=== PATIENT | male | born 1970 | race Caucasian/White ===

== ENCOUNTER → 2024-04-21 12:09 | Outpatient (REF) | payer BC, SELFPAY | LOC: HWRAD 12:09 | PROVIDERS: ATTENDING PHYSICIAN Physician Assistant; FAMILY PHYSICIAN Family Medicine | DX: E27.8 Other specified disorders of adrenal gland (principal) | CPT/HCPCS: 74170; Q9967 ==

== ENCOUNTER → 2024-06-30 06:19 | Day surgery (SDC) | payer BC, SELFPAY | LOC: GI 06:19 | PROVIDERS: ATTENDING PHYSICIAN Internal Medicine Gastroenterology | DX: Z12.11 Encounter for screening for malignant neoplasm of colon (principal); Z86.010 Personal history of colon polyps; K44.9 Diaphragmatic hernia without obstruction or gangrene; K22.89 Other specified disease of esophagus | CPT/HCPCS: 43239; G0105; 88305; 88342 ==

== ENCOUNTER → 2024-07-14 06:18 | Day surgery (SDC) | payer BC, SELFPAY | LOC: GI 06:18 | PROVIDERS: ATTENDING PHYSICIAN Internal Medicine Gastroenterology | DX: Z12.11 Encounter for screening for malignant neoplasm of colon (principal); K64.8 Other hemorrhoids; K57.30 Diverticulosis of large intestine without perforation or abscess without bleeding; K63.5 Polyp of colon; Z86.010 Personal history of colon polyps | CPT/HCPCS: 45385; 88305 ==

== ENCOUNTER → 2024-11-03 08:50 | Outpatient (REF) | payer BC, SELFPAY | LOC: HWRAD 08:50 | PROVIDERS: ATTENDING PHYSICIAN Family Medicine; OTHER PHYSICIAN Internal Medicine Cardiovascular Disease; OTHER PHYSICIAN Ophthalmology; REFERRING PHYSICIAN Specialist | DX: R41.82 Altered mental status, unspecified (principal); H53.9 Unspecified visual disturbance; K21.9 Gastro-esophageal reflux disease without esophagitis; F39 Unspecified mood [affective] disorder; E78.2 Mixed hyperlipidemia; R42 Dizziness and giddiness | CPT/HCPCS: 70450; 93880 ==

== ENCOUNTER → 2024-12-15 08:10 | Outpatient (REF) | payer BC, SELFPAY | LOC: HWRCS 08:10 | PROVIDERS: ATTENDING PHYSICIAN Internal Medicine Cardiovascular Disease; FAMILY PHYSICIAN Family Medicine | DX: R06.02 Shortness of breath (principal) | CPT/HCPCS: 93306 ==

== ENCOUNTER 2025-02-09 13:12 | Observation (INO) | payer BC, SELFPAY ==
[2025-02-09] VITALS (8 sets, daily range): BP systolic 109–122; BP diastolic 65–89; BMI 25.3
--- NOTE | 2025-02-09 11:04 | ED.CVA ---
History of Present Illness
General
Chief Complaint: CVA/TIA Symptoms
Time Seen by Provider: 02/09/25 10:51
Onset of Stroke Symptoms
Onset of symptoms known: Yes
Date of onset of symptoms: 02/09/25
Time of onset of symptoms: 10:00
Time pt last seen normal is known: Yes
Date last time pt seen normal: 02/09/25
Time last time pt seen normal: 10:00
History of Present Illness
History of Present Illness:
Patient is a 54-year-old male with history of TIA, hyperlipidemia presenting to the emergency department with double vision. Per medics patient's last known normal was 10 AM. He had this episode of stiffening of his arms and legs and blank
staring. When he came to he was complaining of double vision. No urinary incontinence or jerking of his extremities. He states that the last time he had double vision he had a full evaluation by cardiology and neurology and ophthalmology and they
determined it was a TIA. He is on a baby aspirin. Upon medics arrival they noticed that he was leaning to his right was having difficulty walking and had an ataxic gait. Their NIH was 0. He does state that the double vision is binocular. No
trauma. No headache. No hearing changes. No numbness tingling. No weakness.
Past History
Past History
ED Past Medical History: None
ED Past Surgical History: Tonsilectomy
Social History
Tobacco: Non-smoker
Personal:
Living: with family
Phy Exam
Physical Exam
Physical Exam:
GENERAL: in no acute distress
HEENT: normocephalic, extraocular movements intact, moist oral mucosa
NECK: normal inspection
RESPIRATORY: no respiratory distress, clear to auscultation bilaterally
CARDIOVASCULAR: regular rate and rhythm
ABDOMEN/: soft, non-distended, non-tender to palpation, no rebound or guarding
EXTREMITIES: non-tender, no edema/swelling
NEUROLOGIC: NIH 0 awake and alert, moves all extremities, no gross motor or sensory deficits, normal finger-nose, normal [id number]-kcps, extraocular movements intact and no visual field deficits
SKIN: warm
NIH Stroke Score
Level of Consciousness: 0 - Alert
LOC questions: 0-Answers both correctly
LOC Commands: 0-Performs both correctly
Best Gaze: 0-Normal
Visual Dillon: 0=Normal, no visual loss
Facial palsy: 0=Normal, symmetrical
Motor - Right Arm: 0=No drift 10 seconds
Motor - Left Arm: 0=No drift 10 seconds
Motor - Right Le-No drift 5 seconds
Motor - Left Le-No drift 5 seconds
Limb Ataxia: 0-Absent
Sensation: 0-Normal
Best Language: 0-No aphasia
Dysarthria: 0-Normal
Extinction and Inattention: 0-No abnormality
Total Score:: 0
Course
Orders/Labs/Results
Orders:
Orders
02/09/25 11:00
CT Head W/o Iv Contrast Urgent
Comment:
Reason For Exam: double vision, hx TIA
02/09/25 11:01
Electrocardiogram (*1) Urgent
Reason for Study: TIA/Stroke
EKG- Treatment ONCE
02/09/25 11:06
Basic Metabolic Panel Urgent
Complete Blood Count/With Diff Urgent
Troponin I Urgent
02/09/25 12:00
MR Brain W/o & With Contrast Routine
Comment:
Reason For Exam: diplopia
OK for patient to be off Cardiac Monitoring for MRI: No
Recent pill cam endoscopy?: No
02/09/25 12:16
Add On- LAB Urgent
Comments:: In LAB
Tests Added?: CRP,ESR,TSH reflex to free,B1,Lamictal level,Acetylcholine bind
02/09/25 12:25
Vitamin B1, Whole Blood [S] Urgent
Abnormal Lab Results
02/09/25
11:06
MCH 31.7 H pg
(27.0-31.0)
Abs Immat Gran (auto) 0.1 H 10^3/uL
(0-0.05)
Immature Gran % 0.7 H %
(0-0.5)
Chloride 108 H mmol/L
(98-107)
02/09/25 11:06
02/09/25 11:06
Vital Signs
Initial and Last Documented VS:
Initial Vital Signs
BP
122/89
02/09/25 10:51
Last Documented Vital Signs
Temp Pulse Resp BP Pulse Ox
98.6 F 56 22 119/84 96
02/09/25 10:54 02/09/25 12:21 02/09/25 11:45 02/09/25 11:00 02/09/25 11:45
MDM/Problems Addressed
Differential Diagnosis Includes:
Patient is a 54-year-old man with history of TIA, hyperlipidemia presenting to the emergency department with double vision, ataxia and concerns for leaning to the right. His symptoms besides a double vision have resolved. The vision is binocular.
Concern for CVA/TIA given that this is what happened in the past before. Other considerations could be intracranial mass or demyelinating disease or neuromuscular junction disease. Unclear etiology of patient's stiffness episode. Could be
seizure. Does not seem consistent with syncope. Will check blood work EKG. Will obtain CT scan. Patient is not a stroke alert candidate at this time given NIH of 0 however I did notify neurology.
*Critical Care Note
Total Time (30-74mins, 75-104mins- exclusive of procedures): Not Applicable
Update Note
Update Note:
Neuro evaluated patient. Recommended admission for MRI and additional workup. Blood work CT scan unremarkable. Patient with ongoing diplopia. Discussed with hospitalist accepted patient to their service
ED Attending Note
-
Portions of this chart may have been created with voice recognition software.� Occasional wrong word or��sound alike� substitutions may have occurred due to the inherent limitations of voice recognition software.
Discharge Plan
Departure
Patient Disposition: Admit
Date of Disposition: 02/09/25
Time of Disposition: 12:30
Presentation/result/management discussed w/ accepting MD/DO: Hospitalist
Discharge Problem:
Diplopia
Prescriptions:
No Action
Effexor
1 tab PO DAILY
Nexium
1 tab PO DAILY
Referrals:
Edilberto Linares MD [Family Provider] -
Interventions
Interventions:
*Risk Screen - Suicide Last Done: 02/09/25 10:54
*General Assessment Last Done: 02/09/25 10:54
*Neglect/Abuse Screening Last Done: 02/09/25 10:54
*ED- Fall Risk Assessment Last Done: 02/09/25 10:54
*ED COVID-19 Vaccine History Last Done: 02/09/25 10:54
ED- Pulmonary Assessment Last Done: 02/09/25 12:21
ED- Neurological Assessment Last Done: 02/09/25 11:04
ED- Cardiac Assessment Last Done: 02/09/25 12:21
Discharge Date and Time
Print Language: [place]THER[place] IRISH
[2025-02-09 11:27] LABS: % Eosinophils 1.8 % (0-6); % Immature Granulocytes 0.7 % (0-0.5); % Lymphocytes 38.4 % (20.5-51.1); % Monocytes 6.7 % (1.7-9.3); % Neutrophils 51.4 % (42.2-75.2); Absolute Basophils 0.1 10^3/uL (0-0.2); Absolute Eosinophils 0.2 10^3/uL (0-0.7); Absolute Immature Granulocytes 0.1 10^3/uL (0-0.05); Absolute Lymphocytes 3.4 10^3/uL (1.2-3.4); Absolute Monocytes 0.6 10^3/uL (0.1-0.6); Absolute Neutrophils 4.6 10^3/uL (1.4-6.5); Hematocrit 43.2 % (39.0-52.0); Hemoglobin 15.1 g/dL (13.0-18.0); Mean Corpuscular Hgb 31.7 pg (27.0-31.0); Mean Corpuscular Volume 90.6 fL (80.0-94.0); Nucleated Red Blood Cells % 0 % (-); Platelet Count 246 10^3/uL (130-400); Red Blood Cell Count 4.77 10^6/uL (4.70-6.10); Red Cell Dist. Width 12.8 % (11.5-14.5); White Blood Cell Count 8.9 10^3/uL (4.8-10.8)
--- NOTE | 2025-02-09 11:37 | CON.NEURO ---
Consultation
Order
Date of Consultation: 02/09/25
Requesting Provider:
Reason for Consult: Diplopia
Neurology Consultation Note.
HPI: This is a 54-year-old man who presented to [facility] on 02/05/2025 with diplopia. According to the patient he developed an acute vertigo painless binocular diplopia at 9:00-9:30 AM today, after waking up at 7:45 AM feeling
perfectly fine. The patient denies any associated headaches, vertigo, dysphagia, dysarthria or dyspnea. He had a previous episode in October,, lasting 10-15 minutes.
The patient was previously seen by Dr. Aguilera and reportedly had unremarkable EMG.
ER VS: 147/87,57, 37.0 C
EKG:Sinus bradycardia, QTc Int : 374 ms
PDMP: No recently prescribed medication
Labs: Glucose�93, normal WBCs, platelets,
Carotid Doppler ultrasound (11/03/2024)�unremarkable
CT head wo contrast(11/03/2024) -no acute abnormality
PMH: HTN, DLP, GERD, ET, RF+, MDD, EtOH addiction in remission for 11.5 years, nephrolithiasis
PSH: Tonsillectomy/ear tube procedures
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
FH: Not contributory to current presentation
All: Penicillin
ROS: Constitutional: Negative. Negative for chills, fever and unexpected weight change.
HENT: Negative for ear pain, hearing loss, tinnitus and trouble swallowing.
Eyes: Negative. Negative for photophobia, pain and visual disturbance.
Respiratory: Negative for cough, choking and shortness of breath.
Cardiovascular: Negative for chest pain, palpitations and leg swelling.
Gastrointestinal: Negative for abdominal pain and vomiting.
Endocrine: Negative. Negative for cold intolerance.
Genitourinary: Negative for dysuria, flank pain and urgency.
Musculoskeletal: Negative for back pain, gait problem, neck pain and neck stiffness.
Skin: Negative for rash.
Allergic/Immunologic: Negative. Negative for immunocompromised state.
Neurological: Positive for diplopia, imbalance
Psychiatric/Behavioral: Negative for behavioral problems, confusion and hallucinations.
General: Well developed. In no acute distress.
Cardio: Regular rate and rhythm without murmur. Extremities are without cyanosis or edema.
Neuro:
Mental Status: Alert, oriented to person, place, and date. Normal attention and recall. Good fund of knowledge. Follows complex requests across the midline. Comprehension, naming, and repetition intact. Immediate and delayed recall 3/3.
Cranial Nerves: Pupils are equally round and reactive to light. EOMs full. Visual cazares full to confrontation. No ptosis. Horizontal nystagmus on bilateral gaze. V1-V3 intact to light touch and pinprick bilaterally, symmetric. Face
symmetric. Normal hearing AU. The palate elevated well. SCMs and traps 5/5. Tongue midline. No dysarthria.
Motor: Normal bulk and tone. No pronator or arm drift. Strength 5/5 throughout. No clonus.
Reflexes: 3+ throughout the upper extremities and 3+ knees. 2/2 in AJs. Plantar responses flexor bilaterally.
Sensory: Normal vibration and JPS.
Coordination: No dysmetria or tremor.
Gait: deferred
Assessment and Plan:
I. Recurrent diplopia. Differential diagnosis includes vascular versus demyelinating, versus inflammatory, versus metabolic versus neuromuscular junction etiologies.
II. MDD
III. Alcohol use disorder in remission
-Fall precautions
-Apply an eye patch
-Please check Lamictal level, MG panel, thiamine level, TFTs
-Brain MRI with and without gadolinium
-Please obtain medical records from Dr. Aguilera's office.
-Will follow
I personally reviewed all radiology and labs along with past medical records pertinent to current medical problems. Total time spent in patient care is 60 minutes.
Thank you for allowing us to participate in the care of this patient. We will continue to follow. Please do not hesitate to contact us with any questions or concerns.
Subjective/Objective
Subjective Data
Date of Service: February 09, 2025
Objective Data
Vital Signs
Temp Pulse Resp BP Pulse Ox
37.0 C 58 23 119/84 96
02/09/25 10:54 02/09/25 11:00 02/09/25 11:00 02/09/25 11:00 02/09/25 11:00
Lab Results
02/09/25 11:06
Patient Allergies
Penicillins Allergy (Unknown, Verified 02/27/10 22:57)
Unknown
Medications
-
Home Medications
�Medication �Instructions �Recorded
Effexor 1 tab PO DAILY 02/28/10
Nexium 1 tab PO DAILY 02/28/10
Vital Signs and Labs
-
Vital Signs and Labs:
Vital Signs
Temp Pulse Resp BP Pulse Ox
37.0 C 58 23 119/84 96
02/09/25 10:54 02/09/25 11:00 02/09/25 11:00 02/09/25 11:00 02/09/25 11:00
Lab Results
02/09/25 11:06
02/09/25 11:06
Sodium 143 mmol/L (135-145) 02/09/25 11:06
Potassium 4.6 mmol/L (3.5-5.1) 02/09/25 11:06
BUN 12 mg/dl (9-20) 02/09/25 11:06
Glucose 93 mg/dl (70-99) 02/09/25 11:06
Calcium 9.8 mg/dl (8.4-10.2) 02/09/25 11:06
Home Medications
-
Home Medications
Effexor 1 tab PO DAILY 02/28/10
Nexium 1 tab PO DAILY 02/28/10
[2025-02-09 11:43] LABS: Blood Urea Nitrogen 12 mg/dl (9-20); Calcium 9.8 mg/dl (8.4-10.2); Carbon Dioxide 25 mmol/L (22-30); Estimated Creatinine Clearance 82 ml/min; Glucose 93 mg/dl (70-99); Potassium 4.6 mmol/L (3.5-5.1); Sodium 143 mmol/L (135-145); eGFR > 60.00
[2025-02-09 11:53] LABS: Troponin I < 0.012 ng/ml
[2025-02-09 12:15] LABS: Chloride 108 mmol/L (98-107)
--- NOTE | 2025-02-09 12:55 | HPS.HSE ---
Addendum entered and electronically signed by Bree Oliveira MD 02/09/25 12:58:
Currently denies any symptoms.
Addendum entered and electronically signed by Bree Oliveira MD 02/09/25 12:57:
Patient states right eye feels weak.
Original Note:
Family Physician
-
Family Physician: Edilberto Linares
Chief Complaint
-
double vision
History of Present Illness
54-year-old male past medical history of hypertension, hyperlipidemia, GERD, depression, prior alcohol use disorder, nephrolithiasis, rheumatoid factor positive, presenting with double vision. He had episode of acute vertigo, bilateral painless
double vision at 9 AM today after waking up at 7:45 in the morning perfectly fine. He denies headaches, vertigo, difficulty swallowing, speaking or shortness of breath.
He had a similar episode in October 2024 lasting 10 to 15 minutes associate with some weakness and tingling at that time.
Patient was previously diagnosed essential tremor of his hands and started on propranolol. He had EMG by Dr. Aguilera which was unremarkable.
He uses marijuana. He does not smoke.
No family history of neurological problems.
Medical History
Past Medical History
Past Medical History: Reports Other (hypertension, hyperlipidemia, GERD, depression, prior alcohol use disorder, nephrolithiasis, rheumatoid factor positive)
Past Surgical History: Reports Other ( Tonsillectomy, ear tube procedures)
Social History
Tobacco: Non-smoker
Alcohol: Former
Drug: Marijuana
Family History
Family History: Not pertinent
Allergies / Home Medications
Allergies reflects when Allergies were last updated in [facility].
Home Medications with original date entered in [facility]
Allergy/Medication List:
Allergies
Allergy/AdvReac Type Severity Reaction Status Date / Time
Penicillins Allergy Unknown Unknown Verified 02/27/10 22:57
Home Medications
aripiprazole 10 mg tablet 10 mg PO HS 02/09/25
aspirin 81 mg tablet,delayed release 81 mg PO DAILY 02/09/25
atorvastatin 10 mg tablet (Lipitor) 10 mg PO DAILY 02/09/25
duloxetine 60 mg capsule,delayed release (Cymbalta) 60 mg PO DAILY 02/09/25
lamotrigine 200 mg tablet (Lamictal) 400 mg PO HS 02/09/25
omeprazole 40 mg capsule,delayed release 40 mg PO DAILY 02/09/25
propranolol 20 mg tablet 20 mg PO BID 02/09/25
Review of Systems
-
History Source: Patient
A 12 point ROS was completed and negative except as noted: Yes
Constitutional: Reports No Symptoms
EENT: Reports No Symptoms
Respiratory: Reports No Symptoms
Cardiac: Reports No Symptoms
Abdomen/GI: Reports No Symptoms
: Reports No Symptoms
Musculoskeletal: Reports No Symptoms
Skin: Reports No Symptoms
Neurological: Reports No Symptoms
Endocrine: Reports No Symptoms
Hematologic/Lymphatic: Reports No Symptoms
Psych: Reports No Symptoms
Physical Exam
Vital Signs
Vital Signs
Temp Pulse Resp BP Pulse Ox
98.6 F 56 22 119/84 96
02/09/25 10:54 02/09/25 12:21 02/09/25 11:45 02/09/25 11:00 02/09/25 11:45
Physical Exam
General: Well Developed, Well Nourished and No Apparent Distress
HEENT: NormoCephalic, Moist mucous membranes and Atraumatic
Respiratory: Clear
Cardiac: S1/S2 and Regular Rhythm; No Murmur or Rub
GI: Soft, Non Tender, Non Distended and Normal Bowel Sounds; No Organomegaly
Rectal: Deferred by Provider
Musculoskeletal: No Clubbing, No Cyanosis and No Edema
Skin: No Rash
Neuro: Nonfocal/grossly intact
Laboratory Results
-
02/09/25 11:06
02/09/25 11:06
Laboratory Results
Troponin I < 0.012 ng/ml 02/09/25 11:06
Data Reviewed
-
Lab Data: Labs Reviewed by me
Old Records: Reviewed
Impression/Plan
-
IMPRESSION:
PLAN:
# Diplopia possibly secondary to right eye cranial nerve palsy versus rule out myasthenia gravis
-Check MRI brain with and without contrast
-Check Lamictal level, thiamine, TSH, acetylcholinesterase antibody, ESR, CRP
-Eyepatch for right eye
-Neurology following
Asymptomatic sinus bradycardia secondary to propranolol
-Heart rate 50s to 60s
Depression/anxiety/PTSD
-Continue aripiprazole, duloxetine, Lamictal
Essential tremor
-Continue propranolol
Hyperlipidemia
-Continue statin
GERD
-Continue omeprazole
Prior alcohol use disorder
History of rheumatoid factor positive
Marijuana use
Full code
DVT prophylaxis�SCDs
Regular diet
[2025-02-09 12:56] LABS: Erythrocyte Sed Rate 2 mm/hour (0-20)
[2025-02-09 13:33] LABS: HDL Cholesterol 47 mg/dl; LDL Cholesterol, Calculated 66 mg/dl; Total Cholesterol 143 mg/dl (50-199); Triglyceride 153 mg/dl (10-149); Very Low Density Lipoprotein 30 mg/dl (0-30)
[2025-02-09 13:40] LABS: Glycohemoglobin (HgbA1c) 5.5 % (4.0-5.6)
[2025-02-09 14:13] LABS: C-Reactive Protein < 5.00 mg/L (0.0-10.00)
[2025-02-09 14:43] LABS: TSH Reflex To Free T4 0.81 uIU/ml (0.47-4.68)
--- NOTE | 2025-02-09 15:28 | PTCARENOTE ---
Addendum entered by Pippa Padgett RN 02/09/25 16:37:
Addendum to previous note- Eye patch applied to Rt eye as ordered.
Original Note:
Received pt from ER via stretcher, accompanied by ER staff. Pt AAO x3, CARBAJAL well, ambulatory to bed, no c/o weakness/dizziness. NIHSS 0; pt denies diplopia at present. VSS. telemetry:NSR. On room air- pulse ox 97%, no SOB noted. Abd soft,
rounded, to start regular diet. PT DTV; urinal at bedside. Afebrile; face flushed; skin intact. Oriented to [place], currently resting comfortably. Will continue to monitor.
[2025-02-09] MEDS: INDERAL 20 MG PO (20:45)
[2025-02-09] MEDS: ABILIFY 10 MG PO (22:46)
[2025-02-09] MEDS: LAMICTAL 400 MG PO (22:46)
[2025-02-09] MEDS: MESTINON 60 MG PO (22:47)
--- NOTE | 2025-02-10 | PTCARENOTE ---
Denies any visual disturbance at this time. States that he is not experiencing any sx that brought him in to hosp.
[2025-02-10 03:20] VITALS: BP 110/60
[2025-02-10 06:50] LABS: Hematocrit 44.8 % (39.0-52.0); Hemoglobin 15.5 g/dL (13.0-18.0); Mean Corp Hgb Conc. 34.6 g/dL (33.0-37.0); Mean Corpuscular Hgb 31.4 pg (27.0-31.0); Mean Corpuscular Volume 90.7 fL (80.0-94.0); Mean Platelet Volume 9.3 fL (7.4-10.4); Platelet Count 239 10^3/uL (130-400); Red Blood Cell Count 4.94 10^6/uL (4.70-6.10); Red Cell Dist. Width 13.1 % (11.5-14.5); White Blood Cell Count 9.3 10^3/uL (4.8-10.8)
[2025-02-10 07:10] LABS: Blood Urea Nitrogen 13 mg/dl (9-20); Calcium 9.5 mg/dl (8.4-10.2); Carbon Dioxide 23 mmol/L (22-30); Chloride 106 mmol/L (98-107); Estimated Creatinine Clearance 82 ml/min; Glucose 94 mg/dl (70-99); Potassium 4.5 mmol/L (3.5-5.1); Sodium 141 mmol/L (135-145); eGFR > 60.00
[2025-02-10 07:29] VITALS: BP 112/73
--- NOTE | 2025-02-10 08:52 | W.PN.HOSP.TC ---
Today's Communication/Plan
-
Discharged with instructions to continue Naur[place] 60 mg 3 times daily and follow-up with Dr. Agiulera in outpatient
Assessment / Plan
Assessment / Plan
54-year-old male with past medical history of hypertension, hyperlipidemia, GERD, depression, prior alcohol use disorder, nephrolithiasis, rheumatoid factor positive presented with double vision. He had acute episode of vertigo, bilateral painless
double vision and 9 AM. Previous that morning he was feeling perfectly fine. He denied any headache vertigo difficulty swallowing speaking or shortness of breath. Head CT revealed no evidence of acute intracranial hemorrhage or infarct, however
severe tortuosity of the intracranial vertebral arteries causing mild ventral compression on the medulla and wendy unchanged from prior was present. Neurology was consulted and patient was admitted. Additional MRI was done. MRI found towards
tortuous right vertebral artery extends close to the proximal/mid segment of the left ocular motor nerve suggesting there could be compression of the left oculomotor nerve.
# Recurrent diplopia
-MRI suggests compression of left oculomotor nerve, but does not correlate clinically
-Suspect MG per neuro due to recurrent episodes of diplopia and otherwise (-) work up on imaging for acute cause, and improvement of symptoms today
-Eye patch
-Neurology appreciated
-TSH 0.81.
-Lamictal, MG panel, thiamine pending
-Neurology cleared for discharge, today cranial nerve III, IV, intact. No FND. No complaints of diplopia
-Continue pyridostigmine 60 mg 3 times daily (not QID, per Neuro), and follow-up with Dr. Aguilera in outpatient.
#Asymptomatic bradycardia
-Secondary to propranolol, heart rate 50s to 60s
#Depression/anxiety/PTSD
-Continue aripiprazole, duloxetine, Lamictal
#Essential tremor
-Continue propranolol
#Hyperlipidemia
-Continue statin
#GERD
-Continue omeprazole
Hx alcohol use disorder
Hx RF positive
Marijuana use
Full code
DVT SCDs
Regular diet
Anticipated Discharge: Today
Subjective/Interval History
-
Date of Service: February 10, 2025
Feels well. Wants to go home.
Objective Data
-
Labs:
Laboratory Results
02/10/25
05:30
WBC 9.3
Hgb 15.5
Hct 44.8
Plt Count 239
Sodium 141
Potassium 4.5
Chloride 106
Carbon Dioxide 23
BUN 13
Creatinine 1.0
Glucose 94
Calcium 9.5
Vital Signs:
Vital Signs
Temp Pulse Resp BP Pulse Ox
98.5 F 60 18 112/73 96
02/10/25 07:29 02/10/25 07:29 02/10/25 07:29 02/10/25 07:29 02/10/25 07:29
I&O
02/09/25 02/10/25 02/11/25
06:59 06:59 06:59
Intake Total 360 / 360
Balance 360 / 360
Review of Systems
-
History Source: Patient
Constitutional: Reports No Symptoms
EENT: Reports No Symptoms Reported
Respiratory: Reports No Symptoms
Cardiac: Reports No Symptoms
Abdomen/GI: Reports No Symptoms
Musculoskeletal: Reports No Symptoms
Neuro: Reports No Symptoms
Physical Exam
-
General: No Apparent Distress and Comfortable
HEENT: Normocephalic, No Ptosis and PERRLA
Respiratory: Clear to Auscultation
Cardiac: Regular Rhythm and S1/S2
GI: Soft, Nontender, Nondistended and Normal Bowel Sounds
Musculoskeletal: No Edema
Skin: Warm and Dry
Neuro: AO x 3, No Motor Deficits, Nonfocal/Grossly Intact, Central Nerve's Intact and No Sensory Deficits; Negative Tremors, Slurred Speech or Facial Droop
Psych: Calm
[2025-02-10] MEDS: INDERAL 20 MG PO (08:57)
[2025-02-10] MEDS: LIPITOR 10 MG PO (08:57)
[2025-02-10] MEDS: PROTONIX 40 MG PO (08:57)
[2025-02-10] MEDS: MESTINON 60 MG PO (08:57)
[2025-02-10] MEDS: ASPIR LOW (ENTERIC COATED) 81 MG PO (08:57)
[2025-02-10] MEDS: CYMBALTA DELAYED RELEASE 60 MG PO (08:57)
--- NOTE | 2025-02-10 10:08 | W.PN.NEURO.1 ---
Today's Communication / Plan
-
.
Subjective/Objective
Subjective Data
Date of Service: February 10, 2025
Neurology follow-up note
HPI: Mr. Barrera states that his diplopia have resolved after he started Mestinon. No reports of abdominal pain or cramping, dysarthria, dysphagia or dyspnea.
Brain MRI showed mild generalized atrophy and minimal subcortical white matter disease.
Labs: Normal TSH, CRP.
PMH: HTN, DLP, GERD, ET, RF+, MDD, EtOH addiction in remission for 11.5 years, nephrolithiasis
PSH: Tonsillectomy/ear tube procedures
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
FH: Not contributory to current presentation
All: Penicillin
ROS: Constitutional: Negative. Negative for chills, fever and unexpected weight change.
HENT: Negative for ear pain, hearing loss, tinnitus and trouble swallowing.
Eyes: Negative. Negative for photophobia, pain and visual disturbance.
Respiratory: Negative for cough, choking and shortness of breath.
Cardiovascular: Negative for chest pain, palpitations and leg swelling.
Gastrointestinal: Negative for abdominal pain and vomiting.
Endocrine: Negative. Negative for cold intolerance.
Genitourinary: Negative for dysuria, flank pain and urgency.
Musculoskeletal: Negative for back pain, gait problem, neck pain and neck stiffness.
Skin: Negative for rash.
Allergic/Immunologic: Negative. Negative for immunocompromised state.
Neurological: Positive for diplopia, imbalance
Psychiatric/Behavioral: Negative for behavioral problems, confusion and hallucinations.
General: Well developed. In no acute distress.
Cardio: Regular rate and rhythm without murmur. Extremities are without cyanosis or edema.
Neuro:
Mental Status: Alert, oriented to person, place, and date. Normal attention and recall. Good fund of knowledge. Follows complex requests across the midline. Comprehension, naming, and repetition intact.
Cranial Nerves: Pupils are equally round and reactive to light. EOMs full. Visual cazares full to confrontation. No ptosis. Horizontal nystagmus on bilateral gaze. V1-V3 intact to light touch and pinprick bilaterally, symmetric. Face
symmetric. Normal hearing AU. The palate elevated well. SCMs and traps 5/5. Tongue midline. No dysarthria.
Motor: Normal bulk and tone. No pronator or arm drift. Strength 5/5 throughout. No clonus.
Reflexes: 3+ throughout the upper extremities and 3+ knees. 2/2 in AJs. Plantar responses flexor bilaterally.
Sensory: Normal vibration and JPS.
Coordination: No dysmetria or tremor.
Gait: deferred
Assessment and Plan:
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
II. MDD
III. Alcohol use disorder in remission
-Fall precautions
-Continue Mestinon 60 mg 3 times daily
-Follow-up MG panel
-OP SFEMG
-Outpatient neuropsychological evaluation and neurology follow-up with Dr. Aguilera
I personally reviewed all radiology and labs along with past medical records pertinent to current medical problems. Total time spent in patient care is 46 minutes.
Thank you for allowing us to participate in the care of this patient. Please do not hesitate to contact us with any questions or concerns.
Objective Data
Vital Signs
Temp Pulse Resp BP Pulse Ox
36.9 C 60 18 112/73 96
02/10/25 07:29 02/10/25 08:57 02/10/25 07:29 02/10/25 08:57 02/10/25 07:29
Lab Results
02/10/25 05:30
02/10/25 05:30
Sodium 141 mmol/L (135-145) 02/10/25 05:30
Potassium 4.5 mmol/L (3.5-5.1) 02/10/25 05:30
BUN 13 mg/dl (9-20) 02/10/25 05:30
Glucose 94 mg/dl (70-99) 02/10/25 05:30
Calcium 9.5 mg/dl (8.4-10.2) 02/10/25 05:30
LDL Cholesterol, Calc 66 mg/dl 02/09/25 11:06
Whole Bld Vitamin B1 Cancelled 02/09/25 12:00
Patient Allergies
Penicillins Allergy (Verified 02/09/25 19:55)
as a child
Vital Signs and Labs
-
Vital Signs and Labs:
Vital Signs
Temp Pulse Resp BP Pulse Ox
36.9 C 60 18 112/73 96
02/10/25 07:29 02/10/25 08:57 02/10/25 07:29 02/10/25 08:57 02/10/25 07:29
Lab Results
02/10/25 05:30
02/10/25 05:30
Sodium 141 mmol/L (135-145) 02/10/25 05:30
Potassium 4.5 mmol/L (3.5-5.1) 02/10/25 05:30
BUN 13 mg/dl (9-20) 02/10/25 05:30
Glucose 94 mg/dl (70-99) 02/10/25 05:30
Calcium 9.5 mg/dl (8.4-10.2) 02/10/25 05:30
LDL Cholesterol, Calc 66 mg/dl 02/09/25 11:06
Whole Bld Vitamin B1 Cancelled 02/09/25 12:00
Medications
-
Medications:
Generic Name Dose Route Start Last Admin
Trade Name Freq PRN Reason Stop Dose Admin
Aripiprazole 10 mg 02/09/25 22:00 02/09/25 22:46
Aripiprazole 10 Mg Tablet PO 03/09/25 21:59 10 mg
HS LIA Administration
Aspirin 81 mg 02/10/25 08:00 02/10/25 08:57
Aspirin 81 Mg (Enteric Coated) Tablet PO 03/10/25 07:59 81 mg
DAILY LIA Administration
Atorvastatin Calcium 10 mg 02/10/25 08:00 02/10/25 08:57
Atorvastatin (Lipitor) 10 Mg Tablet PO 03/10/25 07:59 10 mg
DAILY LIA Administration
Duloxetine HCl 60 mg 02/10/25 08:00 02/10/25 08:57
Duloxetine Delayed Release 60 Mg Capsule PO 03/10/25 07:59 60 mg
DAILY LIA Administration
Lamotrigine 400 mg 02/09/25 22:00 02/09/25 22:46
Lamotrigine 100 Mg Tablet PO 03/09/25 21:59 400 mg
HS LIA Administration
Pantoprazole Sodium 40 mg 02/10/25 08:00 02/10/25 08:57
Pantoprazole 40 Mg Delayed Release Tablet PO 03/10/25 07:59 40 mg
DAILY LIA Administration
Propranolol HCl 20 mg 02/09/25 20:00 02/10/25 08:57
Propranolol 20 Mg Regular Release Tablet PO 03/09/25 19:59 20 mg
BID LIA Administration
Pyridostigmine [place] 60 mg 02/09/25 22:00 02/10/25 08:57
Pyridostigmine 60 Mg Tablet PO 03/09/25 21:59 60 mg
QID LIA Administration
Home Medications
-
Home Medications
aripiprazole 10 mg tablet 10 mg PO HS Mental Health/Anxiety 02/09/25
aspirin 81 mg tablet,delayed release 81 mg PO DAILY Blood Clot Prevention/Tx 02/09/25
atorvastatin 10 mg tablet (Lipitor) 10 mg PO DAILY High Cholesterol 02/09/25
duloxetine 60 mg capsule,delayed release (Cymbalta) 60 mg PO DAILY Mental Health/Anxiety 02/09/25
lamotrigine 200 mg tablet (Lamictal) 400 mg PO HS Mental Health/Anxiety 02/09/25
omeprazole 40 mg capsule,delayed release 40 mg PO DAILY GERD 02/09/25
propranolol 20 mg tablet 20 mg PO BID Blood Pressure 02/09/25
pyridostigmine bromide 60 mg tablet 60 mg PO TID 30 days #90 tabs 02/10/25
--- NOTE | 2025-02-10 11:15 | CM ---
Alert awake oriented pt who lives with Nilsa in a 2 story home with 1 step to enter and 12 steps to bed bathroom. he is independent with driving and all ADLs.No adaptive devises.
NO VN/SNF hx
Pharmacy [facility]
PCP Dr Linares
PLAN Home no needs will drive home
[2025-02-10 11:17] VITALS: BP 124/79
--- NOTE | 2025-02-10 11:36 | W.DCSUMMARY ---
Discharge Summary
Discharge Data
Date of Admission: 02/09/25
Date of Discharge: 02/10/25
-
Pending Results: Yes
Additional Pending Results:
Vit B1
Lamotrigine levels
Acetylcholine receptor binding antibody
Hospital Course
Primary diagnosis:
Recurrent diplopia
Secondary diagnosis:
Asymptomatic bradycardia
Depression
Anxiety
PTSD
Essential tremor
Hyperlipidemia
GERD
Hospital course:
54-year-old male with past medical history of hypertension, hyperlipidemia, GERD, depression, prior alcohol use disorder, nephrolithiasis, rheumatoid factor positive presented with double vision. He had acute episode of vertigo, bilateral painless
double vision and 9 AM. Previous that morning he was feeling perfectly fine. He denied any headache vertigo difficulty swallowing speaking or shortness of breath. Head CT revealed no evidence of acute intracranial hemorrhage or infarct, however
severe tortuosity of the intracranial vertebral arteries causing mild ventral compression on the medulla and wendy unchanged from prior was present. Neurology was consulted and patient was admitted. Additional MRI was done. MRI found towards
tortuous right vertebral artery extends close to the proximal/mid segment of the left ocular motor nerve suggesting there could be compression of the left oculomotor nerve. Physical exam findings did not correlate. No focal neurological deficits
found on physical exam. 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 Patient started on pyridostigmine.
Today, patient is stable and has no complaints. Discharge on pyridostigmine 60mg three times daily with instructions for close neurology follow-up with Dr. Aguilera in the next week.
Imaging:
Head CT 02/09/2025
IMPRESSION:
1. No CT evidence for acute intracranial hemorrhage or transcortical infarct.
2. Mild diffuse cerebral and cerebellar volume loss.
3. Minimal white matter leukoaraiosis.
4. Severe tortuosity of the intracranial vertebral arteries causing mild ventral compression on the medulla and wendy which appears unchanged.
Brain MRI 02/09/25
IMPRESSION: Tortuosity of both vertebral arteries, extending to the left of midline. The tortuous right vertebral artery extends close to the proximal cisternal segment of the left oculomotor nerve. Please correlate with any physical exam findings
that might suggest compression of the left oculomotor nerve.
Mild atrophy in this 54-year-old.
Minimal T2 and FLAIR white matter hyperintensities, commonly seen with aging and usually attributed to small vessel ischemic disease. These hyperintensities have not been shown to correlate with a focal neurologic deficit.
Partially empty sella syndrome. This is often an incidental finding of no clinical significance, although it does have an association with idiopathic intracranial hypertension. Many patients are asymptomatic and endocrinologically normal, although
with some increasing reports of variable hypopituitarism and hyperprolactinemia.
Discharge Plan
-
Patient Disposition: Home (Routine Discharge)
Discharge Diagnosis/Procedures: Recurrent Diplopia
Condition: Good
Diet: As tolerated
Activity: No restrictions
Driving Restrictions: As prior to admission
Bathing Restrictions: None
Referrals:
Edison Aguilera MD [Active] - in less than 1 week
Edilberto Linares MD [Family Provider] - in less than 1 week
Prescriptions:
New
pyridostigmine bromide 60 mg Tablet
60 mg PO TID 30 Days Qty: 90 0RF
Continued
lamotrigine [Lamictal] 200 mg Tablet
400 mg PO HS
atorvastatin [Lipitor] 10 mg Tablet
10 mg PO DAILY
omeprazole 40 mg Capsule,Delayed Release(Dr/Ec)
40 mg PO DAILY
aspirin 81 mg Tablet,Delayed Release (Dr/Ec)
81 mg PO DAILY
propranolol 20 mg Tablet
20 mg PO BID
aripiprazole 10 mg Tablet
10 mg PO HS
duloxetine [Cymbalta] 60 mg Capsule,Delayed Release(Dr/Ec)
60 mg PO DAILY
Discharge Orders:
Discharge Patient (As Directed); Ordered 02/10/25
Ordered By: Myra Rothman
Discharge Date and Time
Print Language: GREENLANDIC
[2025-02-11 22:54] LABS: Lamotrigine (Lamictal) 17.2 ug/mL (3.0-15.0)
== END 2025-02-10 12:11 | disposition home or self-care (01) ==
LOC: 4 EAST ACU 13:12
PROVIDERS: ADMITTING PHYSICIAN Hospitalist; ATTENDING PHYSICIAN Hospitalist; EMERGENCY PHYSICIAN Student in an Organized Health Care Education/Training Program; FAMILY PHYSICIAN Family Medicine; OTHER PHYSICIAN Psychiatry & Neurology Neurology
DX: H53.2 Diplopia (principal); E78.5 Hyperlipidemia, unspecified; R26.0 Ataxic gait; R00.1 Bradycardia, unspecified; F32.9 Major depressive disorder, single episode, unspecified; I10 Essential (primary) hypertension; K21.9 Gastro-esophageal reflux disease without esophagitis; F12.90 Cannabis use, unspecified, uncomplicated; G25.0 Essential tremor; F41.9 Anxiety disorder, unspecified; F43.10 Post-traumatic stress disorder, unspecified; I67.81 Acute cerebrovascular insufficiency; I77.1 Stricture of artery; G93.5 Compression of brain; I67.82 Cerebral ischemia; G31.9 Degenerative disease of nervous system, unspecified; R90.82 White matter disease, unspecified; F10.11 Alcohol abuse, in remission; Z87.442 Personal history of urinary calculi; Z88.0 Allergy status to penicillin; Z79.899 Other long term (current) drug therapy; Z86.73 Personal history of transient ischemic attack (TIA), and cerebral infarction without residual deficits; Z79.82 Long term (current) use of aspirin
CPT/HCPCS: 70450; 70553; 80048; 80061; 80175; 83036; 84425; 84443; 84484; 85025; 85027; 85652; 86041; 86140; 93005; 99285; A9575

== ENCOUNTER → 2025-10-26 10:04 | Outpatient (REF) | payer BC, SELFPAY | LOC: RAD 10:04 | PROVIDERS: ATTENDING PHYSICIAN Student in an Organized Health Care Education/Training Program; FAMILY PHYSICIAN Family Medicine | DX: F31.60 Bipolar disorder, current episode mixed, unspecified (principal); G25.0 Essential tremor; F10.11 Alcohol abuse, in remission; R43.0 Anosmia; R43.2 Parageusia; M25.511 Pain in right shoulder | CPT/HCPCS: 73030 ==